=== PATIENT | female | born 1975 | race African-American/Black ===

== ENCOUNTER 2017-07-13 08:41 | Day surgery (SDC) | payer OTHER ==
[~2017-07-13] VITALS: Ht 170.2 cm; Wt 67.6 kg
[2017-07-13] MEDS ORDERED: PRILOSEC 20MG20 MG PO (09:26)
[2017-07-13] MEDS ORDERED: NECON 7/7/71 TAB PO (09:28)
[2017-07-13 09:42] VITALS: BP 111/81; PULSE 71; TEMP 97.4
[2017-07-13 11:15] VITALS: BP 110/85; PULSE 65; TEMP 97.7
[2017-07-13 11:30] VITALS: BP 110/87; PULSE 59
[2017-07-13] MEDS ORDERED: BENTYL 10MG10 MG/CAP PO (11:30)
[2017-07-13 11:45] VITALS: BP 111/72; PULSE 62
[2017-07-13] MEDS ORDERED: BENEFIBER (11:50)
== END 2017-07-13 12:30 | disposition home or self-care (01) ==
LOC: SDCO 08:41
DX: K21.9 Gastro-esophageal reflux disease without esophagitis (principal); K44.9 Diaphragmatic hernia without obstruction or gangrene; K64.0 First degree hemorrhoids; R19.7 Diarrhea, unspecified; R11.10 Vomiting, unspecified; R68.81 Early satiety; R10.32 Left lower quadrant pain; R19.4 Change in bowel habit
CPT/HCPCS: OP; J2250; J3010; J7030